=== PATIENT | male | born 1995 | race African-American/Black ===

== ENCOUNTER 2019-09-11 09:59 | Outpatient (CLI) | payer OTHER, SELFPAY ==
--- NOTE | 2019-09-11 | XR_ITS ---
WS: [id number] Right wrist, 09/11/2019 Clinical Data: wrist pain acute right Comparison: None. Findings: No fractures or dislocations are seen. The carpal bones are intact. There is no soft tissue swelling. The distal radius and ulna are not remarkable. There is bony fusion of the lunate and triquetrum which is a normal variation. XR/XR wrist RT min 3V* [id number] Impression: Negative right wrist.
== END 2019-09-11 10:00 | disposition home or self-care (01) ==
LOC: RADOUTREAD 10:12
PROVIDERS: Visit Provider Nurse Practitioner Family
DX: Z76.89 Persons encountering health services in other specified circumstances (principal)

== ENCOUNTER 2020-10-08 11:17 | Emergency (ER) | payer OTHER, SELFPAY ==
[2020-10-08 11:17] VITALS: BP 159/97; PULSE 75; RESP 18; TEMP 37.1; O2SAT 98; BMI 26.4
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
--- NOTE | 2020-10-08 11:46 | CT_ITS ---
WS: [id number] CT HEAD NONCONTRAST HISTORY: trauma TECHNIQUE: Contiguous axial imaging performed through the brain in 2.5 mm imaging. Bone and soft tiss ue windows. Sagittal and coronal reformats reviewed. All CT scans at [facility] use at ast one of these dose optimization techniques: automated exposure control; mA and/or kV adjustment pe r patient size (includes targeted exams where dose is matched to clinical indication); or iterative r econstruction. DLP: 929.04 mGy.cm COMPARISON: None available. No acute intracranial hemorrhage, midline shift or mass effect. No atrophy or prior infarcts or herniation. Ventricles: Normal size with no hydrocephalus. Paranasal sinuses: As visualized are clear. Mastoid air cells: Well pneumatized. Calvarium and scalp: Skull is intact with no soft tissue edema or swelling. CT/CT head wo con* [id number] IMPRESSION: Negative head CT.
[2020-10-08] MEDS: tetanus-dipt-pertussis 0.5 mL SDV IM (12:02)
[2020-10-08 12:32] VITALS: BP 138/88; PULSE 88; RESP 18; O2SAT 98
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
[2020-10-08] MEDS: acetaminophen 500 mg Tablet 1000 MG PO (13:05)
[2020-10-08 13:13] VITALS: BP 138/88; PULSE 88; RESP 18; O2SAT 98
== END 2020-10-08 13:14 | disposition home or self-care (01) ==
PROVIDERS: Emergency Provider Family Medicine
DX: S02.2XXA Fracture of nasal bones, initial encounter for closed fracture (principal); J34.2 Deviated nasal septum; W50.0XXA Accidental hit or strike by another person, initial encounter; Y93.67 Activity, basketball; Z23 Encounter for immunization
CPT/HCPCS: 12011; 70450; 70486; 90471; 90715; 99283

== ENCOUNTER 2020-10-13 09:36 | Day surgery (SDC) | payer OTHER, SELFPAY ==
[2020-10-12 13:34] VITALS: BMI 24.3
[2020-10-13] VITALS (12 sets, daily range): BP systolic 122–161; BP diastolic 78–106; PULSE 54–74; RESP 12–23; TEMP 36.3–36.6; O2SAT 93–100
--- NOTE | 2020-10-13 10:01 | ANES.PREANE2 ---
Pre-Anesthetic Assessment Pre-Anesthetic Assessment: Height/Weight: Height 1.88 m Weight 86.183 kg Temp Pulse Resp BP Pulse Ox 97.9 F 68 18 122/78 97 10/13/20 09:47 10/13/20 09:47 10/13/20 09:47 10/13/20 09:47 10/13/20 09:47 Preop Diagnosis: Nasal and septal fracture Displaced Proposed Procedure: Operation Date: 10/13/20 10:50 Proposed Procedures p Closed Reduction Nasal Fracture 17156 S02.2XXA(Not Applicable) - Adria Rosales MD Was Beta Tayler taken within 24 hours: N/A Last intake: Intake Last Liquid Date 10/13/20 Last Liquid Time 01:00 Last Solid Date 10/12/20 Last Solid Time 23:00 Social: Social History: No alcohol and No tobacco Exam: Pre-Anes Outpt Exam: alert, oriented x 3, clear to auscultation bilaterally and regular rate & rhythm Airway: Submandibular: WNL Cervical ROM: WNL MP: 2 Dentition: Full History/ROS: No significant history except as noted Anesthetic Plan: ASA status: 1 Anesthesia: General Risk of > 500 ml blood loss (7ml/kg in children): No PFSH Anesthesia PFSH: Social History Smoking and tobacco status: never smoked Special noel needs: No Data Anesthesia Cardiac Studies: No Data to Display
[2020-10-13] MEDS: sodium chloride 0.9% 1,000 ML 30 ML IV (10:07)
--- NOTE | 2020-10-13 10:24 | W.PM.OPSUD ---
Surgery/Procedure H&P Update DATE OF PROCEDURE: October 13, 2020 DATE H&P PERFORMED: 10/11/20 H&P UPDATE INFORMATION: I have reviewed H&P completed within last 30 days, I have examined patient prior to procedure and No changes to prior documentation CHANGES TO PREVIOUS DOCUMENTATION: No changes PREOP DIAGNOSIS: Nasal and septal fracture Displaced PLANNED PROCEDURE: Operation Date: 10/13/20 10:50 Proposed Procedures p Closed Reduction Nasal Fracture 40149 S02.2XXA(Not Applicable) - Adria Rosales MD
[2020-10-13] MEDS: scopolamine 1.5 Patch 1 PATCH TRANSDERMA (10:32)
[2020-10-13] MEDS: oxymetazoline 0.05% Nasal Spray 15 mL 2 SPRAY NOSTRIL-R (10:40)
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
[2020-10-13] MEDS: fentaNYL 50 mcg/mL INJ 2mL IVP ×2 (11:45→11:50)
--- NOTE | 2020-10-13 11:47 | P.PCN_ITS ---
PACU note PACU note: VSS, Good respiratory effort, report to DESKTOP SUPPORT ASSOCIATE Post-Anesthesia Exam: awake
--- NOTE | 2020-10-13 11:47 | PM.PACU ---
PACU note PACU note: VSS, Good respiratory effort, report to GENERAL I FARMWORKER Post-Anesthesia Exam: awake
[2020-10-13] MEDS: morphine 4 mg/mL SDV 1 mL IVP (12:43)
[2020-10-13] MEDS: HYDROmorphone 1 mg/mL INJ 1 mL 0.5 MG IVP (13:28)
--- NOTE | 2020-10-13 14:53 | ANE.PACU2 ---
Inpatient post-anesthesia follow up: Airway intact: Yes Vital signs: Temperature 97.8 F Pulse Rate 54 Respiratory Rate 18 Blood Pressure 147/96 Pulse Oximetry 96 Oxygen Delivery Me thod Room Air Oxygen Flow Rate Fraction of Inspir ed Oxygen Hydration adequate: Yes Nausea and vomiting: No Pain level: 3 Mental status: Baseline
== END 2020-10-13 14:06 | disposition home or self-care (01) ==
PROVIDERS: Visit Provider Otolaryngology
PROC: 0NSBXZZ Reposition Nasal Bone, External Approach (ICD-10-PCS; CPT 30520; principal; 2020-10-13 10:40)
DX: S02.2XXA Fracture of nasal bones, initial encounter for closed fracture (principal); W50.0XXA Accidental hit or strike by another person, initial encounter; Y93.67 Activity, basketball; J34.2 Deviated nasal septum
CPT/HCPCS: 30520; 96365; 96374; 96375; J0131; J0330; J0690; J1170; J2270; J2405; J2704; J3010; J7030